=== PATIENT | female | born 1970 | race Caucasian/White ===

== ENCOUNTER → 2016-06-03 | Outpatient (CLI) | payer OTHER ==
[~2016-06-03] MED LIST: ACETAMINOPHEN PO; ADIPEX-P37.5 M1 PO; ALBUTEROL MININEB NEB; ASCORBIC ACID500 M4 PO; ASPIRIN81 M2 PO; B-12500 MCG PO; CALCIUM PO; DIPHENHYDRAMINE25 M1 PO; ICY HOT 16% POW49 GM TOP; MAGNESI PO; METFORMIN HCL500 M1 PO; MOTRIN400 M1 PO; OMEPRAZOLE40 M1 PO; SINGULAIR PO; SYMBICORT 16010.2 GM INH; VITAMIN D3400 UNI1 PO
[2016-06-03 16:01] LABS: HEMATOCRIT 30.8 % (35.0-45.0); HEMOGLOBIN 9.6 gm/dL (12.0-16.0); MEAN CELL VOLUME 80.8 FL (83-96); MEAN CORPUSCULAR HEMOGLOBIN 25.3 PG (28-34); MEAN CORPUSCULAR HGB CONC 31.3 g/dL (30-36); MEAN PLATELET VOLUME 7.6 FL (6.5-11.5); RED BLOOD COUNT 3.81 X10e (3.90-5.30); RED CELL DISTRIBUTION WIDTH 13.7 % (11.0-15.5); WHITE BLOOD COUNT 10.4 X10e3 (4.0-10.5)
[2016-06-03 16:09] LABS: BILIRUBIN,TOTAL 0.2 mg/dL (0.2-2.0); CALCIUM SERUM 9.1 mg/dL (8.4-10.2); CREATININE SERUM 0.6 mg/dL (0.6-1.4); GLOM FILT RATE Estimated 108.5 mL/min (>60); POTASSIUM 3.9 mmol/L (3.5-5.1); PROTEIN TOTAL SERUM 8.1 g/dL (6.0-8.3)
[2016-06-06 20:58] LABS: GLIADIN IGA AB 11 Units (<20); GLIADIN IGG AB 4 Units (<20); RETICULIN IGA SCREEN W/REFLEX Negative (Negative); TISSUE TRANSGLUTAMINASE IGA AB 1 U/mL (<4)
== END | disposition home or self-care (01) ==
LOC: CLAB 15:23
PROVIDERS: Internal Medicine
DX: R19.7 Diarrhea, unspecified (principal)
CPT/HCPCS: 36415; 80053; 83516; 85027; 86255